=== PATIENT | female | born 1945 ===

== ENCOUNTER 2018-01-26 08:33 | Outpatient (CLI) | payer OTHER | END 2018-01-26 14:06 | disposition home or self-care (01) | LOC: SONOGRAMA 08:33 | DX: E04.1 Nontoxic single thyroid nodule (principal) ==

== ENCOUNTER 2019-01-31 08:08 | Outpatient (CLI) | payer OTHER | END 2019-01-31 08:14 | disposition home or self-care (01) | LOC: SONOGRAMA 08:08 | DX: E04.2 Nontoxic multinodular goiter (principal) ==

== ENCOUNTER 2021-03-18 07:26 | Outpatient (CLI) | payer OTHER | END 2021-03-18 07:28 | disposition home or self-care (01) | LOC: SONOGRAMA 07:26 | PROVIDERS: ATTEND Specialist | DX: E04.2 Nontoxic multinodular goiter (principal) ==

== ENCOUNTER 2021-11-17 08:40 | Outpatient (CLI) | payer OTHER | END 2021-11-17 08:50 | disposition home or self-care (01) | LOC: SONOGRAMA 08:40 | PROVIDERS: ATTEND Specialist | DX: E04.2 Nontoxic multinodular goiter (principal) ==

== ENCOUNTER 2023-07-05 07:36 | Outpatient (CLI) | payer OTHER | END 2023-07-05 07:44 | disposition home or self-care (01) | LOC: SONOGRAMA 07:36 | PROVIDERS: ATTEND Specialist | DX: E04.2 Nontoxic multinodular goiter (principal) ==

== ENCOUNTER 2024-11-08 08:45 | Outpatient (CLI) | payer OTHER | END 2024-11-08 08:54 | disposition home or self-care (01) | LOC: SONOGRAMA 08:45 | PROVIDERS: ATTEND Specialist | DX: E04.2 Nontoxic multinodular goiter (principal) ==